=== PATIENT | female | born 1940 | race Caucasian/White ===

== ENCOUNTER 2018-04-02 06:24 | Emergency (ER) | payer MEDICARE, OTHER ==
[~2018-04-02] VITALS: Ht 162.6 cm; Wt 54.3 kg
[2018-04-02] MEDS ORDERED: METHOCARBAMOL 750 MG TABLET ONE (06:54)
[2018-04-02] MEDS ORDERED: METHOCARBAMOL 750 MG TABLET PO ONE (07:00)
[2018-04-02 07:30] VITALS: BP 129/72
== END 2018-04-02 08:26 | disposition home or self-care (01) ==
LOC: ED 08:20
DX: G44.219 Episodic tension-type headache, not intractable (principal); M25.511 Pain in right shoulder; Z87.891 Personal history of nicotine dependence
CPT/HCPCS: 70450; 99284

== ENCOUNTER 2018-04-08 10:12 | Emergency (ER) | payer MEDICARE, OTHER ==
[~2018-04-08] VITALS: Ht 162.6 cm; Wt 54.3 kg
[2018-04-08 10:28] VITALS: BP 157/79
== END 2018-04-08 10:55 | disposition home or self-care (01) ==
LOC: ED 10:30
DX: M54.2 Cervicalgia (principal); R51 Headache; Z76.0 Encounter for issue of repeat prescription; Z87.891 Personal history of nicotine dependence
CPT/HCPCS: 99283

== ENCOUNTER 2018-07-20 00:02 | Inpatient (IN) | payer MEDICARE, OTHER ==
[~2018-07-20] VITALS: Ht 162.6 cm; Wt 54.0 kg
--- NOTE | 2018-07-20 00:45 | NUR ---
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 DENIES N/V, ABD PAIN, CP, ARM PAIN, OR WEAKNESS. PT PLACED ON CONT SPO2, CARDIAC, AND BP MONITOR
[2018-07-20 00:49] LABS: BASOPHILS # (AUTO) 0.11 x10^3/uL (0-0.1); BASOPHILS % (AUTO) 1 % (0-1); EOSINOPHILS # (AUTO) 0.36 x10^3/uL (0-0.4); EOSINOPHILS % (AUTO) 3 % (1-7); LYMPHOCYTES # (AUTO) 1.82 x10^3/uL (1-3.4); LYMPHOCYTES % (AUTO) 13 % (22-44); MD NO; MEAN CORPUSCULAR VOLUME 78.1 fL (80-100); MEAN PLATELET VOLUME 7.2 fL (7.4-10.4); MONOCYTES # (AUTO) 0.99 x10^3/uL (0.2-0.8); MONOCYTES % (AUTO) 7 % (2-9); NEUTROPHILS # (AUTO) 10.92 x10^3/uL (1.8-6.8); NEUTROPHILS % (AUTO) 77 % (42-75); PLATELET COUNT 416 x10^3/uL (130-400); RED BLOOD COUNT 4.57 x10^6/uL (3.82-5.3); RED CELL DISTRIBUTION WIDTH 16.7 % (9.6-15.2)
[2018-07-20 01:01] LABS: ALANINE AMINOTRANSFERASE 17 U/L (12-78); ALBUMIN 3.4 g/dL (3.4-5.0); ANION GAP 7 mmol/L (5-15); CALCIUM 8.5 mg/dL (8.5-10.1); CHLORIDE 106 mmol/L (98-107); CREATININE 0.68 mg/dL (0.55-1.02)
[2018-07-20 01:05] LABS: ALKALINE PHOSPHATASE 139 U/L (45-117); BILIRUBIN,TOTAL 0.3 mg/dL (0.2-1.0); TOTAL PROTEIN 7.6 g/dL (6.4-8.2); TROPONIN I < 0.015 ng/mL (0.000-0.045)
--- NOTE | 2018-07-20 01:19 | NUR ---
PT TO CT
[2018-07-20] MEDS ORDERED: OMNIPAQUE 350 MG/ML, 100ML BOTTLE ONE (01:20)
--- NOTE | 2018-07-20 01:40 | NUR ---
PT AMBULATED TO BATHROOM WITH STEADY GAIT
[2018-07-20] MEDS ORDERED: LABETALOL 250 MG in DEXTROSE 5% 200 ML IV PRN ×2 (02:30→05:00)
[2018-07-20] MEDS ORDERED: NITROGLYCERIN/D5W PMX 250 ML IV PRN (02:30)
[2018-07-20] MEDS ORDERED: NITROGLYCERIN/D5W PMX 250 ML ONE (02:37)
--- NOTE | 2018-07-20 03:04 | NUR ---
ASSUMED CARE OF PT WITH BS REPORT FROM ASHLYN/ PT REPORTS DISCOMFORT IN HER BACK GOING TO ARMS AND RATES IT AT 3/10. SIDE RAILS UP AND MONITORS ON. IV DRIPS STARTED.
--- NOTE | 2018-07-20 03:27 | NUR ---
titrating iv meds- see iv spreadsheet and pt belongings in bag. purse/clothes. call light in place, explained poc to pt. pt went home and pts questions answered. explained fall risk with meds.
--- NOTE | 2018-07-20 04:28 | NUR ---
PT REMAINS MAINLY SLEEPING. CALL LIGHT IN PLACE, IV TITRATED AND STOPPED NITRO DRIP FOR NOW. DISCUSSED MED/VS WITH DR STEEL AND HE ORDERED TO HOLD NITRO AND DECREASE LABETALOL. WILL MONITOR. ATTEMPTED TO CALL DR ENRIQUE WITH NO ANSWER.
[2018-07-20] MEDS ORDERED: SODIUM CHLORIDE 0.9% 1,000 ML IV SCH (04:39)
--- NOTE | 2018-07-20 04:51 | NUR ---
report to rn bill
--- NOTE | 2018-07-20 04:54 | NUR ---
WHILE GIVING REPORT TO MALIK TREJO, DR ENRIQUE AT , PT BP ELEVATED, RESTARTED IV NITRO. WILL MOVE PT TO CCU AFTER DR GONZALEZ.
[2018-07-20] MEDS ORDERED: morphine SULFATE 10 MG/ML, 1ML IVPush PRN (05:00)
[2018-07-20] MEDS ORDERED: ONDANSETRON 2MG/ML, 2ML IVPush PRN (05:00)
[2018-07-20] MEDS ORDERED: POLYETHYLENE GLYCOL 17 GM PACKET PO PRN (05:00)
[2018-07-20 05:17] LABS: BASOPHILS # (AUTO) 0.01 x10^3/uL (0-0.1); BASOPHILS % (AUTO) 0 % (0-1); EOSINOPHILS # (AUTO) 0.26 x10^3/uL (0-0.4); EOSINOPHILS % (AUTO) 2 % (1-7); LYMPHOCYTES # (AUTO) 1.21 x10^3/uL (1-3.4); LYMPHOCYTES % (AUTO) 10 % (22-44); MD NO; MEAN CORPUSCULAR VOLUME 78.1 fL (80-100); MEAN PLATELET VOLUME 7.4 fL (7.4-10.4); MONOCYTES % (AUTO) 3 % (2-9); NEUTROPHILS # (AUTO) 10.93 x10^3/uL (1.8-6.8); NEUTROPHILS % (AUTO) 85 % (42-75); PLATELET COUNT 372 x10^3/uL (130-400); RED BLOOD COUNT 4.25 x10^6/uL (3.82-5.3); RED CELL DISTRIBUTION WIDTH 16.6 % (9.6-15.2)
--- NOTE | 2018-07-20 05:17 | NUR ---
all belongings taken up with pt.
[2018-07-20 05:25] LABS: % IRON SATURATION 7 % (20-55); ANION GAP 10 mmol/L (5-15); CALCIUM 8.7 mg/dL (8.5-10.1); CHLORIDE 106 mmol/L (98-107); CREATININE 0.72 mg/dL (0.55-1.02); IRON LEVEL 20 mcg/dL (50-170); TOTAL IRON BINDING CAPACITY 292 mcg/dL (250-450)
[2018-07-20 05:29] LABS: TROPONIN I < 0.015 ng/mL (0.000-0.045)
[2018-07-20] MEDS: AMOXICILLIN/CLAV 875-125MG TABLET PO SCH ×2 (10:30→20:40)
[2018-07-20 11:10] LABS: TROPONIN I < 0.015 ng/mL (0.000-0.045)
[2018-07-20] MEDS: CARVEDILOL 6.25 MG TABLET PO SCH (18:46)
[2018-07-20] MEDS: ACETAMINOPHEN 325 MG TABLET PO PRN (20:39)
[2018-07-20] MEDS: LISINOPRIL 10 MG TABLET PO SCH (20:39)
[2018-07-21 04:00] VITALS: BP 100/48
[2018-07-21] MEDS: CARVEDILOL 6.25 MG TABLET PO SCH (05:44)
[2018-07-21] MEDS: ACETAMINOPHEN 325 MG TABLET PO PRN ×3 (05:45→21:35)
[2018-07-21] MEDS: LISINOPRIL 10 MG TABLET PO SCH ×2 (09:31→21:35)
[2018-07-21] MEDS: AMOXICILLIN/CLAV 875-125MG TABLET PO SCH ×2 (09:31→21:37)
[2018-07-21 13:35] VITALS: BP 106/70
[2018-07-21 19:45] VITALS: BP 118/69
[2018-07-21 20:23] VITALS: BP 133/72
[2018-07-21] MEDS: CARVEDILOL 3.125 MG TABLET PO SCH (20:24)
[2018-07-21 21:33] VITALS: BP 141/74
[2018-07-22 01:45] VITALS: BP 138/80
[2018-07-22 06:10] VITALS: BP 128/75
[2018-07-22] MEDS: CARVEDILOL 3.125 MG TABLET PO SCH (06:14)
[2018-07-22] MEDS: AMOXICILLIN/CLAV 875-125MG TABLET PO SCH (07:36)
[2018-07-22] MEDS: LISINOPRIL 10 MG TABLET PO SCH (08:10)
[2018-07-22] MEDS ORDERED: LISI-167 PO (11:51)
[2018-07-22] MEDS ORDERED: FERR324T5 PO (11:51)
[2018-07-22] MEDS ORDERED: ACET325T14 PO (11:51)
[2018-07-22] MEDS ORDERED: CARV3.1212 PO (11:51)
[2018-07-22] MEDS ORDERED: AMOX1TAB12 PO (11:51)
== END 2018-07-22 13:13 | disposition home or self-care (01) | DRG 304 ==
LOC: ED 01:08 → EDIP 02:57 → CSU 05:07 → 5SO 07-21 13:27 → DCLOUNGE 07-22 12:52
PROVIDERS: ADMIT Hospitalist; ATTEND Hospitalist
DX: I16.9 Hypertensive crisis, unspecified (principal); I71.01 Dissection of thoracic aorta; D50.9 Iron deficiency anemia, unspecified; I10 Essential (primary) hypertension; I16.0 Hypertensive urgency; Z87.891 Personal history of nicotine dependence
CPT/HCPCS: 36415; 71045; 71275; 80048; 80053; 82728; 83540; 83550; 83735; 84100; 84484; 85025; 87081; 93005; 93306; 96365; 96367; G0378; J7060; Q9967

== ENCOUNTER 2018-10-02 22:55 | Emergency (ER) | payer MEDICARE, OTHER ==
[~2018-10-02] VITALS: Ht 162.6 cm; Wt 54.9 kg
[~2018-10-02 22:55] MED LIST: ACET325T14 PO; AMOX1TAB12 PO; CARV3.1212 PO; FERR324T5 PO; LISI-167 PO
--- NOTE | 2018-10-02 23:05 | NUR ---
PT ARRIVED VIA EMS WITH PAIN IN BETWEEN SHOULDER BLADES AND HYPERTENSION. TOOK LISINOPRIL 20MG BEFORE CALLING EMS. DENIES PAIN NOW. SBP 190'S. FAMILY AT BEDSIDE.
[2018-10-02] MEDS ORDERED: LISI-170 PO (23:25)
[2018-10-02] MEDS ORDERED: OMNIPAQUE 350 MG/ML, 100ML BOTTLE ONE (23:26)
[2018-10-02] MEDS ORDERED: hydrALAzine 20 MG/ML, 1ML ONE (23:28)
[2018-10-02] MEDS ORDERED: hydrALAzine 20 MG/ML, 1ML IV ONE (23:30)
[2018-10-02 23:42] LABS: BASOPHILS # (AUTO) 0.09 x10^3/uL (0-0.1); BASOPHILS % (AUTO) 1 % (0-1); EOSINOPHILS # (AUTO) 0.13 x10^3/uL (0-0.4); EOSINOPHILS % (AUTO) 1 % (1-7); LYMPHOCYTES # (AUTO) 1.69 x10^3/uL (1-3.4); LYMPHOCYTES % (AUTO) 16 % (22-44); MD NO; MEAN CORPUSCULAR HEMOGLOBIN 25.6 pg (27.0-34.8); MEAN CORPUSCULAR HGB CONC 33.1 g/dL (32.4-35.8); MEAN CORPUSCULAR VOLUME 77.3 fL (80-100); MEAN PLATELET VOLUME 7.4 fL (7.4-10.4); MONOCYTES # (AUTO) 0.61 x10^3/uL (0.2-0.8); MONOCYTES % (AUTO) 6 % (2-9); NEUTROPHILS # (AUTO) 7.83 x10^3/uL (1.8-6.8); NEUTROPHILS % (AUTO) 76 % (42-75); PLATELET COUNT 386 x10^3/uL (130-400); RED BLOOD COUNT 4.82 x10^6/uL (3.82-5.3); RED CELL DISTRIBUTION WIDTH 17.7 % (9.6-15.2)
[2018-10-02 23:51] LABS: ALBUMIN 3.8 g/dL (3.4-5.0); ANION GAP 9 mmol/L (5-15); CALCIUM 8.7 mg/dL (8.5-10.1); CHLORIDE 107 mmol/L (98-107); CREATININE 0.69 mg/dL (0.55-1.02)
[2018-10-02 23:54] LABS: TROPONIN I < 0.015 ng/mL (0.000-0.045)
--- NOTE | 2018-10-03 00:16 | NUR ---
TAKEN TO CT
--- NOTE | 2018-10-03 00:27 | NUR ---
BACK FROM CT
--- NOTE | 2018-10-03 00:59 | NUR ---
PT RETURNED FROM CT DUE TO IV INFILTRATED. WARM COMPRESS IN PLACE. NEW IV PLACED. PT TAKEN BACK TO CT.
--- NOTE | 2018-10-03 02:06 | NUR ---
PT DENIES PAIN. UPDATED ON POC. PHYSICIAN JUST SPOKE WITH PT
--- NOTE | 2018-10-03 02:45 | NUR ---
WAITING ON TO BRING CLOTHES. DC PAPERWORK COMPLETE
[2018-10-03 03:19] VITALS: BP 127/87
[2018-10-05] MEDS ORDERED: CARV6.252 PO (16:25)
== END 2018-10-03 03:21 | disposition home or self-care (01) ==
LOC: ED 10-03 00:12
DX: I10 Essential (primary) hypertension (principal)
CPT/HCPCS: 36415; 71275; 80048; 82040; 84484; 85025; 93005; 96374; 99284; J0360; Q9967

== ENCOUNTER 2018-10-08 14:59 | Emergency (ER) | payer MEDICARE, OTHER ==
[~2018-10-08] VITALS: Ht 162.6 cm; Wt 54.1 kg
[~2018-10-08 14:59] MED LIST changes: +CARV6.252 PO; +LISI-170 PO
--- NOTE | 2018-10-08 15:25 | NUR ---
CONTACT WITH PT, 78 YR OLD FEMALE HERE WITH C/O "MY BLOOD PRESSURE, I WAS HERE LAST WEEK BECAUSE MY BLOOD PRESSURE WAS REALLY HIGH. YESTERDAY WAS THE FIRST TIME THAT I TOOK THE INCREASED DOSE OF COREG AND I DIDNT FEEL GOOD, I FELT SICK" PT DENIES SYMPTOMS TODAY, TOOK BLOOD PRESSURE AT HOME AND IT WAS ELEVATED.
[2018-10-08 15:39] LABS: BASOPHILS # (AUTO) 0.02 x10^3/uL (0-0.1); BASOPHILS % (AUTO) 0 % (0-1); EOSINOPHILS # (AUTO) 0.07 x10^3/uL (0-0.4); EOSINOPHILS % (AUTO) 1 % (1-7); LYMPHOCYTES # (AUTO) 1.44 x10^3/uL (1-3.4); LYMPHOCYTES % (AUTO) 18 % (22-44); MD NO; MEAN CORPUSCULAR HEMOGLOBIN 24.9 pg (27.0-34.8); MEAN CORPUSCULAR VOLUME 77.6 fL (80-100); MEAN PLATELET VOLUME 7.5 fL (7.4-10.4); MONOCYTES # (AUTO) 0.39 x10^3/uL (0.2-0.8); MONOCYTES % (AUTO) 5 % (2-9); NEUTROPHILS # (AUTO) 6.13 x10^3/uL (1.8-6.8); NEUTROPHILS % (AUTO) 76 % (42-75); PLATELET COUNT 429 x10^3/uL (130-400); RED BLOOD COUNT 5.24 x10^6/uL (3.82-5.3); RED CELL DISTRIBUTION WIDTH 17.4 % (9.6-15.2)
[2018-10-08 15:49] LABS: ANION GAP 6 mmol/L (5-15); CALCIUM 9.3 mg/dL (8.5-10.1); CHLORIDE 107 mmol/L (98-107); CREATININE 0.81 mg/dL (0.55-1.02)
[2018-10-08 15:53] LABS: TROPONIN I < 0.015 ng/mL (0.000-0.045)
--- NOTE | 2018-10-08 16:02 | NUR ---
DR LOPEZ AT BEDSIDE TO EVAL PT. PT SR PER MONITOR, AUTO BP AND PULSE OX IN PLACE. PTS AND FRIEND AT BEDSIDE.
[2018-10-08 16:50] VITALS: BP 162/87
--- NOTE | 2018-10-08 16:50 | NUR ---
DR LOPEZ AT BEDSIDE TO RE-EVAL PT
--- NOTE | 2018-10-08 17:22 | NUR ---
PT DRESSED, NO IV TO DC. REVIEWED DC INSTRUCTIONS WITH PT. DISCUSSED RELAXATION TECHNIQUES. F/U WITH PCP SEYMOUR AT 0800. UNDERSTANDING VERBALIZED. PT LEFT AMB, GAIT STEADY.
== END 2018-10-08 17:25 | disposition home or self-care (01) ==
LOC: ED 17:05
DX: I10 Essential (primary) hypertension (principal); M54.2 Cervicalgia
CPT/HCPCS: 36415; 71045; 80048; 82040; 83880; 84484; 85025; 93005; 99284

== ENCOUNTER → 2018-12-23 | Outpatient (CLI) | payer MEDICARE, OTHER ==
[2018-12-23 15:47] LABS: BASOPHILS # (AUTO) 0.03 x10^3/uL (0-0.1); BASOPHILS % (AUTO) 0 % (0-1); EOSINOPHILS # (AUTO) 0.07 x10^3/uL (0-0.4); EOSINOPHILS % (AUTO) 1 % (1-7); LYMPHOCYTES # (AUTO) 1.33 x10^3/uL (1-3.4); LYMPHOCYTES % (AUTO) 17 % (22-44); MD NO; MEAN CORPUSCULAR HEMOGLOBIN 25.9 pg (27.0-34.8); MEAN CORPUSCULAR HGB CONC 32.2 g/dL (32.4-35.8); MEAN CORPUSCULAR VOLUME 80.4 fL (80-100); MEAN PLATELET VOLUME 7.4 fL (7.4-10.4); MONOCYTES # (AUTO) 0.46 x10^3/uL (0.2-0.8); MONOCYTES % (AUTO) 6 % (2-9); NEUTROPHILS # (AUTO) 6.06 x10^3/uL (1.8-6.8); NEUTROPHILS % (AUTO) 76 % (42-75); PLATELET COUNT 319 x10^3/uL (130-400); RED BLOOD COUNT 4.72 x10^6/uL (3.82-5.3); RED CELL DISTRIBUTION WIDTH 17.1 % (9.6-15.2)
[2018-12-23 15:58] LABS: ANION GAP 5 mmol/L (5-15); CHLORIDE 107 mmol/L (98-107); CHOLESTEROL, TOTAL 170 mg/dL (140-239); CREATININE 0.69 mg/dL (0.55-1.02); TRIGLYCERIDES 116 mg/dL (50-200); VLDL CHOLESTEROL 23 mg/dL (0-25)
[2018-12-23 15:59] LABS: CHOL/HDL RATIO 3.4; HDL CHOL % 29 % (28-40); HDL CHOLESTEROL (DIRECT) 50 mg/dL (40-60); LDL CHOLESTEROL,CALCULATED 97 mg/dL (54-169); LDL/HDL RATIO 1.9 (0.5-3.0)
== END | disposition home or self-care (01) ==
LOC: CFH 07:09
PROVIDERS: ATTEND Registered Nurse
DX: I10 Essential (primary) hypertension (principal); I71.2 Thoracic aortic aneurysm, without rupture; I71.9 Aortic aneurysm of unspecified site, without rupture
CPT/HCPCS: 36415; 80048; 80061; 85025

== ENCOUNTER → 2019-01-11 | Outpatient (CLI) | payer MEDICARE, OTHER ==
[~2019-01-11] MED LIST changes: +REGADENOSON 0.4 MG/5 ML SYRINGE ONE
== END | disposition home or self-care (01) ==
LOC: CFH 07:27
PROVIDERS: ATTEND Internal Medicine Cardiovascular Disease
DX: I71.2 Thoracic aortic aneurysm, without rupture (principal); I10 Essential (primary) hypertension
CPT/HCPCS: 78452; 93017; A9502; J2785

== ENCOUNTER → 2019-08-04 | Outpatient (CLI) | payer MEDICARE, OTHER ==
[~2019-08-04] MED LIST changes: +CEFD300C37 PO; +METO25TA35 PO; +OMNIPAQUE 350 MG/ML, 100ML BOTTLE ONE; -REGADENOSON 0.4 MG/5 ML SYRINGE ONE; +TELM40TA4 PO
== END | disposition home or self-care (01) ==
LOC: CFH 08:53
PROVIDERS: ATTEND Internal Medicine Cardiovascular Disease
DX: I71.2 Thoracic aortic aneurysm, without rupture (principal)
CPT/HCPCS: 71275; 82565; Q9967